=== PATIENT | male | born 1960 | race Caucasian/White ===

== ENCOUNTER 2017-07-31 18:28 | Emergency (ER) | payer BC ==
--- NOTE | 2017-07-31 19:07 | EDM.PDOC ---
ED HPI GENERAL MEDICAL PROBLEM - General Chief Complaint: Neuro Symptoms/Deficits Stated Complaint: POSSIBLE STROKE Time Seen by Provider: 07/31/17 19:07 Source of Information: Reports: Patient - History of Present Illness INITIAL COMMENTS - FREE TEXT/NARRATIVE: HISTORY AND PHYSICAL: History of present illness: [Patient with history of hypertension dyslipidemia presents with some intermittent dizziness over the last 4 days as well as a numbness sensation/ tingling in his throat he does have some anterior chain lymphadenopathy and mild pharyngitis. He also has a history of anxiety he has been essentially noncompliant with all treatments over the last 8-10 years. He was formerly on metoprolol Lipitor and Zoloft. He has significant family history of cardiac in the early 50s of a brother and his father, his uncle has recently had an endarterectomy and this 70s. He had previous carotid ultrasound showing some plaque formation around a decade ago. Currently he is asymptomatic no fever nausea vomiting diarrhea constipation chest pain shortness breath headache dizziness or palpitation no bowel or urine symptoms is complains of some sore throat and tingling sensation in his throat ] Review of systems: As per history of present illness and below otherwise all systems reviewed and negative. Past medical history: As per history of present illness and as reviewed below otherwise noncontributory. Surgical history: As per history of present illness and as reviewed below otherwise noncontributory. Social history: No reported history of drug or alcohol abuse. Family history: As per history of present illness and as reviewed below otherwise noncontributory. Physical exam: HEENT: Atraumatic, normocephalic, pupils reactive, negative for conjunctival pallor or scleral icterus, mucous membranes moist, throat clear, neck supple, nontender, trachea midline. Lungs: Clear to auscultation, breath sounds equal bilaterally, chest nontender. Heart: S1S2, regular, negative for clicks, rubs, or JVD. Abdomen: Soft, nondistended, nontender. Negative for masses or hepatosplenomegaly. Negative for costovertebral tenderness. Pelvis: Stable nontender. Genitourinary: Deferred. Rectal: Deferred. Extremities: Atraumatic, negative for cords or calf pain. Neurovascular unremarkable. Neuro: Awake, alert, oriented. Cranial nerves II through XII unremarkable. Cerebellum unremarkable. Motor and sensory unremarkable throughout. Exam nonfocal. Diagnostics: [CBC CMP cardiac enzymes Chest [address] no contrast EKG ] Therapeutics: [Aspirin 324 mg chewable Patient will be discharged with recommendation of aspirin daily, atenolol, Lipitor. 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 - Related Data Allergies Allergy/AdvReac Type Severity Reaction Status Date / Time No Known Allergies Allergy Verified 07/31/17 18:36 Home Meds: Home Meds . [No Known Home Meds] 07/31/17 [History] Past Medical History Cardiovascular History: Reports: High Cholesterol, Hypertension - Past Surgical History GI Surgical History: Reports: Other (See Below) Other GI Surgeries/Procedures: colon resection Social & Family History - Family History Family Medical History: Noncontributory - Tobacco Use Smoking Status *Q: Never Smoker - Caffeine Use Caffeine Use: Reports: None - Alcohol Use Days Per Week of Alcohol Use: 7 Number of Drinks Per Day: 12 Total Drinks Per Week: 84 - Recreational Drug Use Recreational Drug Use: No ED ROS GENERAL - Review of Systems Review Of Systems: ROS reveals no pertinent complaints other than HPI. ED EXAM, GENERAL - Physical Exam Exam: See Below Course - Vital Signs Last Recorded V/S: Last Vital Signs Temp 97.4 F 07/31/17 18:37 Pulse 101 H 07/31/17 18:37 Resp 16 07/31/17 18:37 BP 188/99 H 07/31/17 18:37 Pulse Ox 98 07/31/17 18:37 - Orders/Labs/Meds Orders: Active Orders 24 hr Category Date Time Status EKG Documentation Completion [RC] STAT Care 07/31/17 18:43 Active Chest 1V Frontal [CR] Stat Exams 07/31/17 20:15 Taken Head wo Cont [CT] Stat Exams 07/31/17 19:06 Taken UA W/MICROSCOPIC [URIN] Stat Lab 07/31/17 19:06 Ordered Labs: Laboratory Tests 07/31/17 07/31/17 Range/Units 19:25 19:25 WBC 7.49 (4.0-11.0) K/uL RBC 4.82 (4.50-5.90) M/uL Hgb 15.1 (13.0-17.0) g/dL Hct 43.6 (38.0-50.0) % MCV 90.5 (80.0-98.0) fL MCH 31.3 (27.0-32.0) pg MCHC 34.6 (31.0-37.0) g/dL RDW Std Deviation 42.2 (28.0-62.0) fl RDW Coeff of Becca 13 (11.0-15.0) % Plt Count 241 (150-400) K/uL MPV 9.70 (7.40-12.00) fL Neut % (Auto) 60.4 (48.0-80.0) % Lymph % (Auto) 27.0 (16.0-40.0) % [place] % (Auto) 10.1 (0.0-15.0) % Eos % (Auto) 2.0 (0.0-7.0) % Baso % (Auto) 0.5 (0.0-1.5) % Neut # (Auto) 4.5 (1.4-5.7) K/uL Lymph # (Auto) 2.0 (0.6-2.4) K/uL [place] # (Auto) 0.8 (0.0-0.8) K/uL Eos # (Auto) 0.2 (0.0-0.7) K/uL Baso # (Auto) 0.0 (0.0-0.1) K/uL Nucleated RBC % 0.0 /100WBC Nucleated RBCs # 0 K/uL Sodium 140 (136-148) mmol/L Potassium 4.2 (3.5-5.1) mmol/L Chloride 104 (98-107) mmol/L Carbon Dioxide 26.9 (21.0-32.0) mmol/L BUN 13 (7.0-18.0) mg/dL Creatinine 0.9 (0.8-1.3) mg/dL Est Cr Clr Drug Dosing 95.29 mL/min Estimated GFR (MDRD) > 60.0 ml/min Glucose 92 (74-106) mg/dL Calcium 9.4 (8.5-10.1) mg/dL Total Bilirubin 0.6 (0.2-1.0) mg/dL AST 22 (15-37) U/L ALT 33 (14-63) U/L Alkaline Phosphatase 58 (46-116) U/L Creatine Kinase 138 (26-308) U/L CK-MB (CK-2) 1.8 (0-3.6) ng/mL Troponin I < 0.050 (0.000-0.056) ng/mL Total Protein 7.6 (6.4-8.2) g/dL Albumin 3.8 (3.4-5.0) g/dL Globulin 3.8 H (2.0-3.5) g/dL Albumin/Globulin Ratio 1.0 L (1.3-2.8) Meds: Medications Discontinued Medications Generic Name Dose Route Start Last Admin Trade Name Freq PRN Reason Stop Dose Admin Aspirin 324 mg 07/31/17 19:36 07/31/17 19:47 Aspirin PO 07/31/17 19:37 324 mg ONETIME ONE Administration Lorazepam 1 mg 07/31/17 19:36 07/31/17 19:47 Ativan PO 07/31/17 19:37 1 mg ONETIME ONE Administration Departure - Departure Time of Disposition: 21:28 Disposition: Home, Self-Care 01 Condition: Fair Clinical Impression: Pharyngitis, Hypertension, Dyslipidemia - Discharge Information Referrals: PCP,None [Primary Care Provider] - Forms: ED Department Discharge Additional Instructions: Medication as prescribed Recommend aspirin daily as discussed ER referral for cardiology evaluation and treatment/consideration of stress testing and optimize medical management ER referral for primary care optimize medical management and health maintenance/ screening Return if symptoms persist or worsen or new concerning symptoms develop in the interim [facility] - Primary Care [address] [place] [id number] [facility] Primary Care - Non-Interventional Cardiology [address] [place] [id number] The following information is given to patients seen in the emergency department who are being discharged to home. This information is to outline your options for follow-up care. We provide all patients seen in our emergency department with a follow-up referral. The need for follow-up, as well as the timing and circumstances, are variable depending upon the specifics of your emergency department visit. If you don't have a primary care physician on staff, we will provide you with a referral. We always advise you to contact your personal physician following an emergency department visit to inform them of the circumstance of the visit and for follow-up with them and/or the need for any referrals to a consulting specialist. The emergency department will also refer you to a specialist when appropriate. This referral assures that you have the opportunity for follow-up care with a specialist. All of these measure are taken in an effort to provide you with optimal care, which includes your follow-up. Under all circumstances we always encourage you to contact your private physician who remains a resource for coordinating your care. When calling for follow-up care, please make the office aware that this follow-up is from your recent emergency room visit. If for any reason you are refused follow-up, please contact the [facility] emergency department at and asked to speak to the emergency department charge nurse. - My Orders Last 24 Hours: My Active Orders 07/31/17 19:06 Head wo Cont [CT] Stat UA W/MICROSCOPIC [URIN] Stat 07/31/17 20:15 Chest 1V Frontal [CR] Stat - Assessment/Plan Last 24 Hours: My Active Orders 07/31/17 19:06 Head wo Cont [CT] Stat UA W/MICROSCOPIC [URIN] Stat 07/31/17 20:15 Chest 1V Frontal [CR] Stat
[2017-07-31] MEDS ORDERED: Aspirin 81 MG Tab.Chew PO ONE (19:36)
[2017-07-31] MEDS ORDERED: LORazepam 1 MG Tab PO ONE (19:36)
[2017-07-31 20:12] LABS: CHLORIDE,CL 104 mmol/L (98-107); SODIUM,NA 140 mmol/L (136-148)
--- NOTE | 2017-08-03 05:15 | CT ---
EXAM DATE: 07/31/17 PATIENT'S AGE: 57 Patient: MICHAEL CHAVEZ Facility: [place], [place] Site . Site : 1960 Study: CT Head wo cont [id number]/2/2018 8:02:41 PM Ordering Physician: Zane Penaloza Final Report: INDICATION: tingling, numbness, lightheaded and dizzy for 4 days. TECHNIQUE: CT Head without i.v. contrast. CONTRAST: None COMPARISON: None FINDINGS: CSF spaces: The ventricles are normal for age. Brain: No evidence of mass, acute infarction or hemorrhage is seen. No mass- effect or midline shift is seen. The brain parenchyma is otherwise normal in appearance with preservation of the chun-white matter junction. Calvarium: The visualized paranasal sinuses are well aerated. The mastoid air cells are clear. The visualized orbits are grossly unremarkable. The calvarium is unremarkable in appearance with no fractures identified. IMPRESSION: 1. No evidence of acute infarction, intracranial hemorrhage, or mass-effect seen. Dictated by: Iain Blanco MD @ 07/31/2017 20:16:01 (Electronic Signature) Report Signed by Proxy. FERMÍN
--- NOTE | 2017-08-03 05:18 | CR ---
EXAM DATE: 07/31/17 PATIENT'S AGE: 57 Patient: MICHAEL CHAVEZ Facility: [place], [place] Site . Site : 1960 Study: XRay Chest [id number]/2/2018 8:46:42 PM Ordering Physician: Zane Penaloza Final Report: HISTORY: Weakness. FINDINGS: AP chest radiograph demonstrates a normal cardiac silhouette. Pulmonary vasculature and bradly are normal. No lobar consolidation or pleural effusion is seen. IMPRESSION: No acute cardiopulmonary disease. Dictated by Tasha Chappell MD @ 07/31/2017 8:53:33 PM Dictated by: Tasha Chappell MD @ 07/31/2017 20:53:39 (Electronic Signature) Report Signed by Proxy. [facility]
== END 2017-07-31 20:51 | disposition home or self-care (01) ==
LOC: MW.ED 18:28
DX: J02.9 Acute pharyngitis, unspecified (principal); I10 Essential (primary) hypertension; E78.5 Hyperlipidemia, unspecified; F41.9 Anxiety disorder, unspecified
CPT/HCPCS: 36415; 70450; 71045; 80053; 81001; 82550; 82553; 84484; 85025; 87804; 93005; 99285; A9270; 99283